=== PATIENT | male | born 1975 | race Caucasian/White ===

== ENCOUNTER 2017-07-29 12:34 | Emergency (ER) | payer OTHER ==
[~2017-07-29] VITALS: Ht 172.7 cm; Wt 87.5 kg
[~2017-07-29 12:34] MED LIST: AUGMENTIN 875-1 EACH PO; BENTYL20 M1 PO; CITRATE OF MAG300 ML PO; ZOFRAN4 M2 SL
--- NOTE | 2017-07-29 14:13 | CT SCAN REPORT ---
EXAMINATION: CT HEAD WITHOUT CONTRAST CLINICAL INFORMATION: Headache. Neck pain. COMPARISON: 01/25/2007. TECHNIQUE: Contiguous axial imaging was performed from the skull base to vertex without intravenous administration of contrast. DLP: 600 mGy-cm FINDINGS: There is no evidence of acute intracranial hemorrhage or territorial infarction. No abnormal mass effect or midline shift is seen. Bae to white matter differentiation is well preserved. No extra-axial fluid collections are identified. The ventricles are normal in size. There is no abnormal attenuation within the brain parenchyma. The osseous structures and soft tissues are normal. The mastoid air cells, middle ear cavities, and visualized portions of the paranasal sinuses are well aerated. IMPRESSION: No acute intracranial pathology.
--- NOTE | 2017-07-29 14:37 | ED HEADACHE COMPLAINT ---
History of Present Illness General Chief Complaint: Headache Stated Complaint: NECK PAIN FOGGY FEELING X10 DAYS Source: patient Exam Limitations: no limitations Vital Signs & Intake/Output Vital Signs & Intake/Output Vital Signs Date Time Temp Pulse Resp B/P B/P Pulse O2 O2 Flow FiO2 Mean Ox Delivery Rate 07/29 1524 98.5 61 16 135/74 98 Room Air 07/29 1302 98.0 69 20 121/80 97 Room Air Allergies Coded Allergies: No Known Allergies (09/20/15) Reconcile Medications Amoxicillin/Potassium Clav (Augmentin 875-125 Tablet) 1 EACH TABLET 1 TAB PO BID PNA Dicyclomine HCl (Bentyl) 20 MG TABLET 1 TAB PO 4 TIMES/DAY PRN PAIN Magnesium Citrate (Citrate Of Magnesia) 300 ML SOLUTION 300 ML PO DAILY PRN CONSTIPATION Ondansetron HCl (Zofran) 4 MG TABLET 1 ODT SL TID PRN NAUSEA Sumatriptan Succinate (Imitrex) 50 MG TABLET 1 TAB PO AD headache take one tab and if no relief after 30 minutes take second tab, max two tabs Triage Note: PT C/O H/A X 1.5 WEEKS. +NECK PAIN AND SHOULDERS. C/O DIZZINESS AND LIGHTHEADED. RX DICLOFENAC FROM CLINIC ON SATURDAY Triage Nurses Notes Reviewed? yes Onset: Gradual Duration: week(s): Timing: recent history Quality/Severity: moderate Severity Numbers: 9 Head Injury Location: occipital HPI: 41YO male presents to ED complaining of posterior neck pain radiating to occipital head x 1 week. Headache is worse when looking at the computer screen. Patient went to urgent care and prescribed diclophenac without relief. Patient also reports nausea. Lying flat makes pain worse, nothing improves the pain. Patient reports weakness of left hand x 1 year. The patient denies trauma or injury, visual changes, abdominal pain, fevers, chills. (Alejandra CRUZ,Sugey Romano) Past History Travel History Traveled to [place] past 21 day No Medical History Any Pertinent Medical History? 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 No (Sugey Gilliam) Review of Systems Review of Systems Constitutional: Reports: no symptoms. Eyes: Reports: no symptoms. Ears, Nose, Throat, Mouth: Reports: no symptoms. Respiratory: Reports: no symptoms. Cardiovascular: Reports: no symptoms. Gastrointestinal/Abdominal: Reports: no symptoms. Genitourinary: Reports: no symptoms. Musculoskeletal: Reports: see HPI. Skin: Reports: no symptoms. Neurological/Psychological: Reports: see HPI. Hematologic/Endocrine: Reports: no symptoms. Endocrine: Reports: no symptoms. Immunologic/Allergic: Reports: no symptoms. All Other Systems: Reviewed and Negative (Sugey Gilliam) Physical Exam Physical Exam General Appearance: well developed/nourished, no apparent distress, alert, awake Head: atraumatic, normal appearance Eyes: Bilateral: normal appearance, PERRL, EOMI. Ears, Nose, Throat: normal pharynx, normal ENT inspection, hearing grossly normal, no hemotympanum Neck: normal inspection, supple, full range of motion, bilateral paraspinal muscle tenderness Respiratory: normal breath sounds, no respiratory distress, lungs clear Cardiovascular: regular rate/rhythm Back: normal inspection, normal range of motion Extremities: normal inspection, normal range of motion Psychiatric: awake, alert, oriented x 3 Cranial Nerves: normal hearing, normal speech, PERRL, CN II-XII intact Coordination/Gait: normal gait Motor/Sensory: no motor/sensory deficits Skin: intact, normal color, warm/dry Core Measures Sepsis Present: No Sepsis Focused Exam Completed? No (Sugey Gilliam) Progress Differential Diagnosis: cav sinus thromb, cluster WAN, encephalitis, IC mass/ tumor, intracranial Hem., meningitis, migraine WAN, musculoskeletal pain, sinusitis, subarach. Hem., tension WAN, temporal arteritis, TMJ syndrome Plan of Care: Visual acuity 20/[address] scan without acute abnormality. These findings were discussed with the patient. The patient is neurologically intact, no focal neurologic deficit. Patient medicated with Imitrex here in the emergency department. 20 minutes after administration patient reports improvement in headache from 9/10 to 4/10. Patient says he feels ready to go home at this time. He was prescribed this medication to take at home, he was instructed to follow-up with his primary care doctor and neurologist for further evaluation. He will return with any worsening symptoms or concerns. Patient ambulating without difficulty leaving the emergency department. He has stable of vital signs, no acute distress, nontoxic-appearing. The patient agrees with the plan of care. Diagnostic Imaging: Viewed by Me: CT Scan. Discussed w/RAD: CT Scan. Radiology Impression: PATIENT: YAMILETH KIM PRESENT AGE: 41 PATIENT ACCOUNT NO: [id number] : 77 LOCATION: [facility], [place] ORDERING PHYSICIAN: Jaylyn CRUZ SERVICE DATE: 07/29/17 EXAM TYPE: CAT - CT HEAD WO IV CONTRAST EXAMINATION: CT HEAD WITHOUT CONTRAST CLINICAL INFORMATION: Headache. Neck pain. COMPARISON: 01/25/2007. TECHNIQUE: Contiguous axial imaging was performed from the skull base to vertex without intravenous administration of contrast. DLP: 600 mGy-cm FINDINGS: There is no evidence of acute intracranial hemorrhage or territorial infarction. No abnormal mass effect or midline shift is seen. Bae to white matter differentiation is well preserved. No extra-axial fluid collections are identified. The ventricles are normal in size. There is no abnormal attenuation within the brain parenchyma. The osseous structures and soft tissues are normal. The mastoid air cells, middle ear cavities, and visualized portions of the paranasal sinuses are well aerated. IMPRESSION: No acute intracranial pathology. DICTATED BY: Megan Koenig MD DATE/TIME DICTATED:07/29/171408 JAMMER OPERATOR:FRANCIA DATE/TIME TRANSCRIBED:07/29/171408 CONFIDENTIAL, DO NOT COPY WITHOUT APPROPRIATE AUTHORIZATION. <Electronically signed in Other Vendor System> SIGNED BY: Megan Koenig MD 07/29/17 1413 (Sugey Gilliam) Departure Departure Disposition: HOME OR SELF CARE Condition: Stable Clinical Impression Primary Impression: Headache Qualifiers: Headache type: unspecified Referrals: Patient Has No Primary Care Dr (PCP/Family) Additional Instructions: Take Imitrex as prescribed, follow-up with specialist as referred to you. Return with any worsening symptoms or concerns. Please note that there might be incidental findings in your evaluation that are unrelated to the current emergency department visit. Please notify your primary care doctor about this emergency department visit in order to obtain and review all of the testing performed so that these incidental findings can be monitored as needed. If you had an x-ray performed, please understand that some fractures may not be seen on the initial set of x-rays. If your symptoms persist you might need a repeat set of x-rays to check for such a fracture. If you had a laceration evaluated, please understand that foreign bodies such as glass or wood may not be visible to the naked eye or on plain x-rays. If the wound becomes red, swollen, increasingly more painful or if there is any drainage from the wound, please have it reevaluated by a physician for the possibility of a retained foreign body. If you're unable to follow up as outlined in the discharge instructions please return to the emergency department. Thank you for choosing the [facility] Emergency Department for your care. It was a pleasure to serve you today. Departure Forms: Customer Survey General Discharge Information Prescriptions: Current Visit Scripts Sumatriptan Succinate (Imitrex) 1 TAB PO AD #9 TAB take one tab and if no relief after 30 minutes take second tab, max two tabs (Alejadnra CRUZ,Sugey Romano) PA/LICENSED PHARMACIST Co-Sign Statement Statement: ED Attending supervision documentation- I saw and evaluated the patient. I have also reviewed all the pertinent lab results and diagnostic results. I agree with the findings and the plan of care as documented in the PA's/LICENSED PHARMACIST's documentation. x I have reviewed the ED Record and agree with the PA's/LICENSED PHARMACIST's documentation. [] Additions or exceptions (if any) to the PAs/LICENSED PHARMACIST's note and plan are summarized below: [] (Raquel ONEILL,Leonidas)
[2017-07-29 15:24] VITALS: BP 135/74
[2017-07-29] MEDS ORDERED: IMITREX50 M1 PO (16:17)
== END 2017-07-29 16:24 ==
LOC: ERH 12:34
DX: R51 Headache (principal)